=== PATIENT | female | born 1990 | race African-American/Black ===

== ENCOUNTER 2023-09-23 19:28 | Day surgery (SDC) | payer BC ==
[2023-09-23 19:44] VITALS: BMI 29.8
[2023-09-23] MEDS ORDERED: hydrALAZINE 20 MG/ML VIAL SLOW IVP PRN (21:10)
== END 2023-09-23 21:38 | disposition home or self-care (01) ==
LOC: CSHLD/OP 19:28
PROVIDERS: ATTEND Family Medicine
DX: O9A.212 Injury, poisoning and certain other consequences of external causes complicating pregnancy, second trimester (principal); Z79.82 Long term (current) use of aspirin; Z3A.24 24 weeks gestation of pregnancy; V43.92XA Unspecified car occupant injured in collision with other type car in traffic accident, initial encounter

== ENCOUNTER 2023-09-26 23:19 | Inpatient (IN) | payer BC, OTHER ==
[2023-09-26 23:55] VITALS: BMI 29.8
[2023-09-27] MEDS: hydrALAZINE 20 MG/ML VIAL ONE (00:11)
[2023-09-27] MEDS ORDERED: hydrALAZINE 20 MG/ML VIAL SLOW IVP SCH (00:45)
[2023-09-27 00:59] LABS: Creatinine, Urine 53.4 mg/dL (47-110)
[2023-09-27 01:02] LABS: Hematocrit 32.2 % (34.9-44.5); Hemoglobin 11.3 g/dL (12.0-15.5); Mean Corpuscular HGB CONC 35.1 g/dL (32.0-36.0); Mean Corpuscular Volume 91.2 fl (81.6-98.3); Mean Platelet Volume 9.7 fl (7.4-10.4); Platelet Count 328 10x3/uL (150-450); RBC Distribution Width 12.5 % (11.5-14.5); Red Blood Cell (RBC) Count 3.53 10x6/uL (3.90-5.03); White Blood Cell (WBC) Count 16.2 10x3/uL (3.5-10.5)
[2023-09-27 01:06] LABS: ALT (SGPT) 20 U/L (8-55); AST (SGOT) 27 U/L (5-34); Albumin 3.6 g/dL (3.5-5.0); Alkaline Phosphatase 54 U/L (40-110); Anion Gap 11 mmol/L (10-20); BUN (Urea Nitrogen) 5 mg/dL (7.0-18.7); Bilirubin, Total 0.2 mg/dL (0.2-1.2); Calc. Creatinine Clearance 144 mL/min (70-130); Carbon Dioxide 19 mmol/L (22-29); Chloride 109 mmol/L (98-107); Estimated GFR 119; Globulin 3.2 g/dL (2.4-3.5); Glucose 106 mg/dL (70-105); Potassium 3.5 mmol/L (3.5-5.1); Protein, Total 6.8 g/dL (6.0-8.3); Sodium 135 mmol/L (136-145)
[2023-09-27] MEDS ORDERED: Labetalol HCl 100 MG/20 ML VIAL SLOW IVP PRN ×2 (01:40)
[2023-09-27] MEDS ORDERED: Ondansetron PF 4 MG/2 ML Vial IVP PRN (01:40)
[2023-09-27] MEDS ORDERED: Promethazine HCl 25 MG/ML VIAL IM PRN (01:40)
[2023-09-27] MEDS ORDERED: fentaNYL 50 mcg/mL 1 mL Vial SLOW IVP PRN (01:40)
[2023-09-27] MEDS ORDERED: Lorazepam 2 MG/ML VIAL SLOW IVP PRN (01:40)
[2023-09-27] MEDS ORDERED: hydrALAZINE 20 MG/ML VIAL SLOW IVP PRN ×3 (01:40)
[2023-09-27] MEDS ORDERED: Acetaminophen 500 MG TAB PO PRN (01:40)
[2023-09-27] MEDS ORDERED: Calcium Gluc 4.6 MEQ/10 ML (100 MG/ML) SLOW IVP PRN (01:40)
[2023-09-27] MEDS ORDERED: Oxytocin 30 units/NS 500 ML 500 ML IV SCH (01:45)
[2023-09-27] MEDS: Lactated Ringer's 1,000 ML IV SCH (01:55)
[2023-09-27] MEDS: Magnesium Sulfate 20 gm/500 ml 20 GM/500 ML BAG ONE (01:58)
[2023-09-27] MEDS: Betamet Acet/Betamet Na Ph 30 MG/5 ML VIAL IM SCH (02:20)
[2023-09-27 03:19] LABS: Bilirubin Neg (Negative); Blood, Urine 10 (Negative); Clarity Clear (Clear); Glucose, Urine (Dipstick) Normal (Negative); Ketone, Urine Negative (Negative); Leukocyte Negative (Negative); Nitrite Negative (Negative); Protein, Urine (Dipstick) 100 mg/dl (Neg-Trace); Specific Gravity, Urine 1.015 (1.005-1.030); Urobilinogen Normal mg/dL (Less than 2)
[2023-09-27 03:40] LABS: Bacteria/HPF 1+ HPF (None Seen); CAUTI Indications for Culture Pregnancy; RBC/HPF 0-3 HPF (0-3); Squamous Epithelial 0-3 HPF (0-3); WBC/HPF 0-3 HPF (0-3); Yeast-Budding Rare HPF (None Seen)
[2023-09-27 03:41] LABS: Urine Culture Reflex Yes Yes
[2023-09-27 03:45] LABS: HBSAg Index 0.24 S/CO (0-0.99); Hep B Surf Ag - L&D Non-Reactive S/CO (NonReactive)
[2023-09-27 03:46] LABS: Syphilis Antibody Nonreactive (Nonreactive); Syphilis Antibody Index 0.06 S/CO (<1.00 Non-Reactive)
[2023-09-27] MEDS: Magnesium Sulfate 20 gm/500 ml 20 GM/500 ML BAG IVPB SCH (10:50)
[2023-09-27 13:02] LABS: Amphetamine Not Detected (NotDetected); Barbiturates Screen Not Detected (NotDetected); Benzodiazepine Screen Not Detected (NotDetected); Cocaine Metabolite Screen Not Detected (NotDetected); Methadone Not Detected (NotDetected); Methamphetamine Not Detected (NotDetected); Opiate Screen Not Detected (NotDetected); Oxycodone Screen Not Detected (NotDetected); Phencyclidine (PCP) Not Detected (NotDetected); THC/Cannabinoid Screen Not Detected (NotDetected); Tricyclic Screen Not Detected (NotDetected)
[2023-09-28 02:47] LABS: Urine Total Volume 3000 mL (600-1600)
[2023-09-28 03:12] LABS: Protein, Urine Less than 10 mg/dL (1-14)
[2023-09-28] MEDS ORDERED: hydrALAZINE 20 MG/ML VIAL SLOW IVP PRN (16:03)
[2023-09-30 11:46] VITALS: BP 112/56; TEMP 98.9
== END 2023-09-30 16:04 | disposition home or self-care (01) | DRG 833 ==
LOC: CSHLD/OP 23:19 → CSHLD 09-27 02:12 → OBSVTOIN 09-27 02:12 → CSHANTE 09-28 17:47
PROVIDERS: ADMIT Family Medicine; ATTEND Family Medicine
DX: O13.2 Gestational [pregnancy-induced] hypertension without significant proteinuria, second trimester (principal); O14.92 Unspecified pre-eclampsia, second trimester; Z3A.24 24 weeks gestation of pregnancy
CPT/HCPCS: 36415; 76815; 80053; 80306; 81001; 82570; 84156; 85027; 86780; 86850; 86900; 86901; 87086; 87340; 93005; 93010; 99285; J0360; J0702; J3475; J7120

== ENCOUNTER 2023-12-21 18:00 | Inpatient (IN) | payer BC, OTHER ==
[2023-12-21 19:59] VITALS: BMI 32.1
[2023-12-21] MEDS ORDERED: Promethazine HCl 25 MG/ML VIAL IM PRN (20:33)
[2023-12-21] MEDS ORDERED: Lidocaine 1% (PF) 30 ML VIAL SC PRN (20:33)
[2023-12-21] MEDS ORDERED: Ondansetron PF 4 MG/2 ML Vial IVP PRN (20:33)
[2023-12-21] MEDS ORDERED: Ibuprofen 800 MG TAB PO PRN (20:44)
[2023-12-21] MEDS ORDERED: fentaNYL 50 mcg/mL 1 mL Vial SLOW IVP PRN (20:44)
[2023-12-21] MEDS ORDERED: Tranexamic Acid 1,000 MG/10 ML VIAL IVP PRN (20:44)
[2023-12-21] MEDS ORDERED: Misoprostol 200 MCG TAB PR PRN (20:44)
[2023-12-21] MEDS ORDERED: Diphenoxylate HCl/Atropine Tablet PO PRN (20:44)
[2023-12-21] MEDS ORDERED: Acetaminophen 500 MG TAB PO PRN (20:44)
[2023-12-21] MEDS ORDERED: HYDROcodone/Acetaminophen 5/325 mg Tablet PO PRN (20:44)
[2023-12-21] MEDS ORDERED: Carboprost 250 MCG/ML AMP IM PRN (20:44)
[2023-12-21] MEDS ORDERED: Oxytocin 30 units/NS 500 ML 500 ML IV SCH ×3 (20:45)
[2023-12-21 20:59] LABS: Hematocrit 28.8 % (34.9-44.5); Hemoglobin 9.4 g/dL (12.0-15.5); Mean Corpuscular HGB CONC 32.6 g/dL (32.0-36.0); Mean Corpuscular Hemoglobin 27.6 pg (27.0-33.0); Mean Corpuscular Volume 84.7 fL (81.6-98.3); Mean Platelet Volume 11.2 fL (7.4-10.4); Platelet Count 305 10x3/uL (150-450); RBC Distribution Width 13.6 % (11.5-14.5); White Blood Cell (WBC) Count 10.2 10x3/uL (3.5-10.5)
[2023-12-21] MEDS: Misoprostol 100 MCG TAB PO SCH (21:25)
[2023-12-21 23:08] LABS: HBsAg Index 0.17 S/CO (0-0.99); Hep B Surf Ag - L&D Non-Reactive S/CO (NonReactive)
[2023-12-21 23:10] LABS: Syphilis Antibody Nonreactive (Nonreactive); Syphilis Antibody Index 0.05 S/CO (<1.00 Non-Reactive)
[2023-12-22] MEDS: Lactated Ringer's 1,000 ML IV SCH (01:17)
[2023-12-22] MEDS: hydrALAZINE 20 MG/ML VIAL SLOW IVP PRN ×2 (09:12→21:15)
[2023-12-22] MEDS: Misoprostol 100 MCG TAB VAG SCH (09:15)
[2023-12-22] MEDS: NIFEdipine XL 30 MG ER.TAB PO SCH (11:59)
[2023-12-22] MEDS ORDERED: Ondansetron PF 4 MG/2 ML Vial IVP PRN ×4 (18:39→21:02)
[2023-12-22] MEDS ORDERED: Acetaminophen 325 MG TAB PO PRN (18:39)
[2023-12-22] MEDS ORDERED: diphenhydrAMINE 50 MG/ML VIAL IVP PRN (18:39)
[2023-12-22] MEDS ORDERED: Naloxone HCl 0.4 mg/ml Vial IVP PRN ×4 (18:39)
[2023-12-22] MEDS ORDERED: fentaNYL 50 mcg/mL 1 mL Vial SLOW IVP PRN (18:39)
[2023-12-22] MEDS ORDERED: Promethazine HCl 25 MG/ML VIAL IM PRN ×3 (18:39→21:02)
[2023-12-22] MEDS ORDERED: Naloxone HCl 0.4 mg/ml Vial IV PRN ×2 (18:39→21:02)
[2023-12-22] MEDS ORDERED: Meperidine HCl/PF 25 MG (1 mL) VIAL SLOW IVP PRN (18:39)
[2023-12-22] MEDS ORDERED: Ketorolac Tromethamine 30 MG (1 mL) VIAL IVP PRN (18:39)
[2023-12-22] MEDS ORDERED: Moisturizing Cream (Eucerin) 113 GM JAR TOP PRN ×2 (18:39)
[2023-12-22] MEDS ORDERED: Lactated Ringer's 500 ML IV PRN (18:39)
[2023-12-22] MEDS ORDERED: ePHEDrine Sulfate 50 MG/10 ML VIAL SLOW IVP PRN (18:39)
[2023-12-22 18:42] LABS: Analyzer IN Cardio CS NICU; RapidComm Collect By LDRN
[2023-12-22 18:45] LABS: Analyzer IN Cardio CS NICU; RapidComm Collect By LDRN; pH (Cord, venous) 7.216 (7.250-7.350)
[2023-12-22] MEDS ORDERED: Ketorolac Tromethamine 30 MG (1 mL) VIAL IVP SCH (18:45)
[2023-12-22] MEDS ORDERED: Communication Order-Pharmacy FS SCH ×3 (18:45→21:15)
[2023-12-22] MEDS ORDERED: fentaNYL 2 mcg/Ropivacaine 0.2% Epidural 100 ML CADD EPIDURAL SCH (18:45)
[2023-12-22] MEDS ORDERED: Boostrix 0.5 ML (Tdap) VIAL (>/=7 yrs of age) IM ONE (20:05)
[2023-12-22] MEDS ORDERED: Bisacodyl 10 MG SUPP PR PRN (20:05)
[2023-12-22] MEDS ORDERED: Lanolin Ointment 7 GM TUBE TOP PRN (20:05)
[2023-12-22] MEDS ORDERED: Simethicone Chewable 80 MG TAB PO PRN (20:05)
[2023-12-22] MEDS ORDERED: HYDROcodone/Acetaminophen 5/325 mg Tablet PO PRN ×2 (20:05)
[2023-12-22] MEDS: fentaNYL/Ropivacaine Epidural 0 ML ONE (20:28)
[2023-12-22] MEDS: fentaNYL 50 mcg/mL 1 mL Vial ONE (20:29)
[2023-12-22] MEDS: Azithromycin 500 MG VIAL ONE (20:29)
[2023-12-22] MEDS: CEFAZOLIN 2 GM VIAL ONE (20:29)
[2023-12-22] MEDS: Morphine PF 10 MG/10 ML VIAL ONE (20:30)
[2023-12-22] MEDS: Midazolam HCl 2 mg/2 ml Vial ONE (20:30)
[2023-12-22] MEDS: Diphenoxylate HCl/Atropine Tablet PO PRN (20:37)
[2023-12-22] MEDS: Meperidine HCl/PF 25 MG (1 mL) VIAL IM PRN (20:40)
[2023-12-22] MEDS: metroNIDAZOLE 500 MG in Premix 1 BAG IVPB SCH (20:45)
[2023-12-22] MEDS ORDERED: Azithromycin 500 MG in Sodium Chloride 0.9% 250 ML 250 ML IVPB SCH (21:00)
[2023-12-22] MEDS ORDERED: diphenhydrAMINE 50 MG/ML VIAL IM PRN (21:02)
[2023-12-22] MEDS: Ondansetron PF 4 MG/2 ML Vial IVP PRN (21:05)
[2023-12-22] MEDS: Docusate 100 MG CAP PO SCH (21:28)
[2023-12-22] MEDS: Ferrous Sulfate 325 MG TAB PO SCH (21:28)
[2023-12-22] MEDS: Carboprost 250 MCG/ML AMP ONE (21:40)
[2023-12-22] MEDS: diphenhydrAMINE 50 MG/ML VIAL IVP PRN (23:55)
[2023-12-23] MEDS: Ketorolac Tromethamine 30 MG (1 mL) VIAL IVP SCH (00:03)
[2023-12-23] MEDS: CEFAZOLIN 2 GM in Sodium Chloride 0.9% 100 ML IVPB SCH (01:15)
[2023-12-23] MEDS: diphenhydrAMINE 50 MG/ML VIAL IVP PRN (03:33)
[2023-12-23] MEDS: Prenatal Vitamin 1 TAB PO SCH (08:23)
[2023-12-23] MEDS: NIFEdipine XL 30 MG ER.TAB PO SCH (08:25)
[2023-12-23] MEDS: diphenhydrAMINE 25 MG CAP PO PRN ×2 (11:36→20:01)
[2023-12-23 12:30] LABS: Hemoglobin 8.6 g/dL (12.0-15.5); Mean Corpuscular HGB CONC 31.9 g/dL (32.0-36.0); Mean Corpuscular Hemoglobin 27.4 pg (27.0-33.0); Mean Platelet Volume 10.6 fL (7.4-10.4); Platelet Count 297 10x3/uL (150-450); RBC Distribution Width 13.5 % (11.5-14.5); Red Blood Cell (RBC) Count 3.14 10x6/uL (3.90-5.03); White Blood Cell (WBC) Count 18.4 10x3/uL (3.5-10.5)
[2023-12-23] MEDS ORDERED: HYDROcodone/Acetaminophen 5/325 mg Tablet PO PRN (16:35)
[2023-12-23] MEDS: HYDROcodone/Acetaminophen 5/325 mg Tablet PO PRN (18:11)
[2023-12-23] MEDS: Ibuprofen 800 MG TAB PO SCH (22:28)
[2023-12-25] MEDS: metroNIDAZOLE 500 MG in Premix 1 BAG IVPB SCH (00:29)
[2023-12-25 08:11] VITALS: BP 129/65; TEMP 98.4
== END 2023-12-25 14:15 | disposition home or self-care (01) | DRG 788 ==
LOC: CSHLD 18:41 → CSHPED 12-22 23:15
PROVIDERS: ADMIT Family Medicine; ATTEND Family Medicine
PROC: 10D00Z1 Extraction of Products of Conception, Low, Open Approach (ICD-10-PCS; principal; 2023-12-22)
PROC: 3E0P7VZ Introduction of Hormone into Female Reproductive, Via Natural or Artificial Opening (ICD-10-PCS; 2023-12-22)
DX: O13.4 Gestational [pregnancy-induced] hypertension without significant proteinuria, complicating childbirth (principal); O76 Abnormality in fetal heart rate and rhythm complicating labor and delivery; Z3A.37 37 weeks gestation of pregnancy; Z37.0 Single live birth; Z79.82 Long term (current) use of aspirin; Z79.899 Other long term (current) drug therapy
CPT/HCPCS: 36415; 51702; 82805; 85027; 86780; 86850; 86900; 86901; 87340; J0360; J1200; J1885; J2175; J2250; J2274; J2405; J3010; J3490